=== PATIENT | female | born 1950 | race Caucasian/White ===

== ENCOUNTER → 2017-03-19 | Outpatient (CLI) | payer MEDICARE ==
[~2017-03-19] MED LIST: REGADENOSON 0.4 MG/5 ML SYRINGE ONE
== END | disposition home or self-care (01) ==
LOC: CFH 11:57
PROVIDERS: ATTEND Internal Medicine
DX: R01.1 Cardiac murmur, unspecified (principal); R53.82 Chronic fatigue, unspecified; Z82.49 Family history of ischemic heart disease and other diseases of the circulatory system
CPT/HCPCS: 78452; 93017; 93306; A9502; J2785

== ENCOUNTER → 2018-09-15 | Outpatient (CLI) | payer MEDICARE | END | disposition home or self-care (01) | LOC: CFH 15:16 | PROVIDERS: ATTEND Internal Medicine | DX: J98.4 Other disorders of lung (principal); J44.9 Chronic obstructive pulmonary disease, unspecified; J84.10 Pulmonary fibrosis, unspecified | CPT/HCPCS: 71250 ==

== ENCOUNTER → 2019-10-13 | Outpatient (CLI) | payer MEDICARE | END | disposition home or self-care (01) | LOC: CFH 15:29 | PROVIDERS: ATTEND Internal Medicine | DX: J43.9 Emphysema, unspecified (principal); Z87.891 Personal history of nicotine dependence | CPT/HCPCS: 71250 ==

== ENCOUNTER → 2020-02-03 | Outpatient (CLI) | payer MEDICARE | END | disposition home or self-care (01) | LOC: EDSTATUS 14:00 → CFH 14:26 | PROVIDERS: ATTEND Physician Assistant | DX: D25.9 Leiomyoma of uterus, unspecified (principal); F17.200 Nicotine dependence, unspecified, uncomplicated | CPT/HCPCS: 76830 ==

== ENCOUNTER → 2020-03-05 | Outpatient (CLI) | payer MEDICARE | END | disposition home or self-care (01) | LOC: CFH 12:10 | PROVIDERS: ATTEND Physician Assistant | DX: M81.0 Age-related osteoporosis without current pathological fracture (principal); Z78.0 Asymptomatic menopausal state | CPT/HCPCS: 77080 ==

== ENCOUNTER → 2020-09-12 | Outpatient (CLI) | payer MEDICARE | END | disposition home or self-care (01) | LOC: CFH 14:01 | PROVIDERS: ATTEND Internal Medicine | DX: J44.9 Chronic obstructive pulmonary disease, unspecified (principal); I25.10 Atherosclerotic heart disease of native coronary artery without angina pectoris | CPT/HCPCS: 71250 ==